=== PATIENT | female | born 1980 | race Asian ===

== ENCOUNTER 2019-01-09 09:07 | Emergency (ER) | payer SELFPAY ==
[~2019-01-09] VITALS: Ht 149.9 cm; Wt 47.6 kg
[2019-01-09 10:30] VITALS: BP 144/93
== END 2019-01-09 11:32 | disposition home or self-care (01) ==
LOC: ED 09:07
DX: S80.12XA Contusion of left lower leg, initial encounter (principal); S80.11XA Contusion of right lower leg, initial encounter; S20.319A Abrasion of unspecified front wall of thorax, initial encounter; V49.88XA Car occupant (driver) (passenger) injured in other specified transport accidents, initial encounter; Y93.I9 Activity, other involving external motion; Y92.413 State road as the place of occurrence of the external cause; Y99.8 Other external cause status